=== PATIENT | female | born 1980 | race Caucasian/White ===

== ENCOUNTER 2023-12-17 18:00 | Emergency (ER) | payer MEDICAID ==
[~2023-12-17] VITALS: Ht 160 cm; Wt 73.7 kg
[2023-12-17 18:22] VITALS: BP 141/94; PULSE 91; RESP 18; TEMP 98.4; O2SAT 99
[2023-12-17] MEDS: diphenhydrAMINE 50 MG/ML VIAL IM ONE (19:13)
[2023-12-17] MEDS: methylPREDNISolone SS 125 MG/2 ML VIAL IM ONE (19:14)
[2023-12-17] MEDS: FAMOTIDINE 20 MG TAB PO ONE (19:16)
[2023-12-17 19:34] VITALS: TEMP 98
[2023-12-17] MEDS ORDERED: FAMO-90 PO (21:00)
[2023-12-17] MEDS ORDERED: PRED20TA5 PO (21:00)
[2023-12-17] MEDS ORDERED: EPIN1KIT31 IM (21:00)
[2023-12-17] MEDS ORDERED: DIPH25TA53 PO (21:00)
[2023-12-17 21:08] VITALS: BP 125/85; PULSE 75; RESP 18; O2SAT 97
== END 2023-12-17 21:09 | disposition home or self-care (01) ==
LOC: MED 18:00
DX: L50.0 Allergic urticaria (principal); R03.0 Elevated blood-pressure reading, without diagnosis of hypertension; Z79.899 Other long term (current) drug therapy; X58.XXXA Exposure to other specified factors, initial encounter
CPT/HCPCS: 81025; 96372; 99284; J1200; J2930